=== PATIENT | male | born 1985 | race Caucasian/White ===

== ENCOUNTER → 2019-01-23 08:05 | Outpatient (CLI) | payer BC, SELFPAY ==
[2019-01-10 11:19] VITALS: BMI 37.1
[2019-01-23 13:04] LABS: Cholesterol 145 mg/dL (200); High Density Lipoprotein 37 mg/dL; Triglycerides 88 mg/dL; Very Low Density Lipoprotein 18 mg/dL (5-40)
[2019-01-23 13:15] LABS: Hemoglobin A1c 4.8 % (4.2-6.3)
== END ==
PROVIDERS: PCP Internal Medicine; Visit Provider Internal Medicine
DX: Z00.00 Encounter for general adult medical examination without abnormal findings (principal); E66.9 Obesity, unspecified
CPT/HCPCS: 36415; 80061; 83036